=== PATIENT | male | born 1945 | race Caucasian/White ===

== ENCOUNTER 2017-03-23 05:15 | Emergency (ER) | payer MEDICARE ==
[~2017-03-23] VITALS: Ht 170.2 cm; Wt 89.4 kg
[2017-03-23] MEDS ORDERED: oxyCODONE/APAP 5/325 1 TAB TABLET PO ONE (06:30)
[2017-03-23] MEDS ORDERED: NAPROXEN 500 MG TABLET PO ONE (06:30)
--- NOTE | 2017-03-23 06:39 | ED.ADGEN ---
Past Medical History Past Medical History: Diabetes-Type II, [place] Past Surgical History: No Surgical History Alcohol Use: None Drug Use: None Adult General Chief Complaint Chief Complaint: MECHANICAL FALL HPI HPI Patient is a 71 year old man, history of type 2 diabetes mellitus, CAD status post CABG, with arthritis, who presents to the emergency department with a complaint of pain and swelling in the right knee after a fall. Patient states that he got out of bed to use the bathroom, around 2:30 AM, states that his knee "gave out", and he fell to the ground landing on his knee. He states that he was able to get the phone, although he was unable to get up, and he called his sister approximately 3:30 to 4:00, after he was able to get back into bed. He denies any loss of consciousness. He states that he did hit himself in the forehead with phone was trying to get off the bedside table, denies any headache any vision changes, any weakness numbness or tingling. Denies any other complaints aside from his chronic left-sided neck pain due to torticollis. Patient has been told that he needs a knee replacement on the right sided to severe arthritis. He states that the knee will occasionally give out. He denies any change in sensation, is complaining of pain and swelling throughout the knee extending up into the thigh. No hip pain, no new or different back pain, no nausea or vomiting, chest pain or shortness of breath, no weakness, numbness or tingling. Patient takes a daily baby aspirin, no other anticoagulants. He states he has been compliant with his medications. Patient states his pain is currently 8 out of 10 described as a throbbing sensation. He is fully knee slightly flexed, unable to extend fully secondary to pain. Review of Systems Review of Systems Constitutional: Denies fever or chills. [] Eyes: Denies change in visual acuity. [] HENT: Denies nasal congestion or sore throat. [] Respiratory: Denies cough or shortness of breath. [] Cardiovascular: Denies chest pain or edema. [] GI: Denies abdominal pain, nausea, vomiting, bloody stools or diarrhea. [] : Denies dysuria. [] Musculoskeletal: Denies back pain, pain and swelling in the right knee. Integument: Denies rash. [] Neurologic: Denies headache, focal weakness or sensory changes. [] Endocrine: Denies polyuria or polydipsia. [] Lymphatic: Denies swollen glands. [] Psychiatric: Denies depression or anxiety. [] Current Medications Current Medications Current Medications Medications (Trade) Dose Ordered Sig/Hernesto Start Time Stop Time Status Last Admin Dose Admin Naproxen (Naprosyn) 500 mg 1X ONCE 03/23/17 06:30 03/23/17 06:31 DC 03/23/17 06:33 500 MG Oxycodone/ Acetaminophen (Percocet 5/325) 1 tab 1X ONCE 03/23/17 06:30 03/23/17 06:31 DC 03/23/17 06:33 1 TAB Allergies Allergies Allergies Coded Allergies Type Severity Reaction Last Updated Verified Penicillins Allergy Intermediate 03/23/17 Yes Physical Exam Physical Exam Constitutional: Well developed, well nourished, no acute distress, non-toxic appearance. [] HENT: Normocephalic, patient with a small abrasion located in the center of his forehead, no hematoma, no bony point tenderness., bilateral external ears normal , oropharynx moist, no oral exudates, nose normal. [] Eyes: PERRLA, EOMI, conjunctiva normal, no discharge. [] Neck: Normal range of motion, no midline tenderness, no step-offs or deformities , patient tender to palpation on the right paraspinal supple, no stridor. [] Cardiovascular:Heart rate regular rhythm, no murmur, S1, S2, no rubs or gallops. [] Lungs & Thorax: Bilateral breath sounds clear to auscultation, no wheezing, rhonchi, rales. Well-healed midline surgical incision status post CABG. No chest wall crepitus or tenderness. No signs of trauma. Abdomen: Bowel sounds normal, soft, no tenderness, no masses, no pulsatile masses. [] Skin: Warm, dry, no erythema, no rash. [] Back: No midline tenderness, no step-offs or deformities, patient with mild tenderness palpation in the right-sided paraspinal muscles which she states is chronic, no CVA tenderness. [] Extremities: Patient with significant soft tissue swelling palpable hemarthrosis located anterior to the patella, patella is ballotable, no bony point tenderness, patient with soreness throughout the entire knee joint, with tenderness that extends up into the mid thigh region, pelvis is stable to rock and nontender, no pain or tenderness in the lower portion of the right extremity , ankle is intact with full range of motion and foot and ankle, pulses are intact and equal bilaterally, patient with full range of motion of the left lower extremity without issue, and of bilateral upper extremities. Neurologic: Alert and oriented X 3, normal motor function, normal sensory function, no focal deficits noted. [] Psychologic: Affect normal, judgement normal, mood normal. [] Current Patient Data Vital Signs Vital Signs Date Time Temp Pulse Resp B/P (MAP) Pulse Ox O2 Delivery O2 Flow Rate FiO2 03/23/17 08:22 80 18 140/68 (92) 95 Room Air 03/23/17 05:25 98.6 98.6 Lab Values Laboratory Tests Test 03/23/17 06:30 Glucose (Fingerstick) 247 mg/dL (70-99) H EKG EKG Not indicated. [] Radiology/Procedures Radiology/Procedures [][facility] [address] [place] [address] IMAGING REPORT Signed PATIENT: DANIEL CLEMENTS ACCOUNT: [id number] : 1945 LOCATION: ER AGE: 71 SEX: M EXAM [id number] STATUS: REG ER ORD. PHYSICIAN: TERRANCE DELCID DO; Ari BECKER MD REASON: knee pain after fall PROCEDURE: KNEE RIGHT 4V; RIGHT FEMUR XRAY Portable right knee with patella, 4 views, 03/23/2017: History: Fall, pain There is joint space narrowing, spurring and irregularity of the articular surfaces at the knee joint. There is extensive patellofemoral spurring. No fracture or dislocation is identified. There is a moderate-sized knee joint effusion. Chondrocalcinosis is present. IMPRESSION: 1. Severe degenerative change at the right knee with chondrocalcinosis. 2. Moderate sized knee joint effusion. 3. No acute bony abnormality is detected. Right femur, 2 views, 03/23/2017: No fracture is identified. The hip joint space is well-preserved. IMPRESSION: No acute right femoral abnormality is detected. DICTATED and SIGNED BY: YUDY SANTOS MD DATE: 03/23/17705 CC: TERRANCE DELCID DO; ROVERTO JIMENEZ MD; Ari BECKER MD ~ Course & Med Decision Making Course & Med Decision Making Pertinent Labs and Imaging studies reviewed. (See chart for details) X-rays do not reveal any evidence of acute fracture, noted have a effusion as stated. Patient received naproxen and Percocet in the emergency department. On reevaluation he states he is feeling better, and would like to get up and move around. As was placed in the emergency department, and a walker was obtained. Patient ambulating slowly but steadily with walker and immobilizer. I discussed with patient and family at bedside that my main concern is to ensure the patient is comfortable and safe for discharge home. Patient states that he feels comfortable and he will be staying with his sister, as her home is 1 level and he will not have to go up any stairs, we discussed that he will need to be safe and steady in order to get to the bathroom, kitchen, bedroom patient states that this will be comfortable for him, and he is ready to be discharged home with his family. Patient's sister does have a rolling walker at home which the patient will be able to use. Family voiced agreement with plan. We did discuss concerning symptoms that would prompt return, importance of scheduling follow- up with Dr. Alvarez of orthopedics, to call today to schedule appointment for prompt follow-up, to return to the ED if concerning symptoms develop. Patient given prescription for naproxen and Percocet, along with medication precautions and instructions. Patient voiced understanding and agreement with plan and precautions as stated, discharged home in stable condition with his family. Dragon Disclaimer Dragon Disclaimer This electronic medical record was generated, in whole or in part, using a voice recognition dictation system. Departure Impression: Primary Impression: Knee contusion Disposition: HOME, SELF-CARE Condition: IMPROVED Scripts Docusate Sodium (COLACE) 100 Mg Capsule 1 CAP PO BID, #30 CAP Take one tablet by mouth twice daily while using Percocet to prevent constipation. Stay well-hydrated. Prov: TERRANCE DELCID DO 03/23/17 Oxycodone/Apap 5-325 (PERCOCET 5-325 MG TABLET) 1 Each Tablet 1 TAB PO PRN Q6HRS Y for PAIN, #12 TAB Prov: TERRANCE DELCID DO 03/23/17 Naproxen (NAPROXEN) 250 Mg Tablet 250 MG PO PRN BID Y for PAIN, #10 One tablet by mouth up to twice daily as needed for pain. Take with food, stop use if stomach upset develops. Prov: TERRANCE DELCID DO 03/23/17 TERRANCE DELCID DO Mar 23, 2017 06:39
--- NOTE | 2017-03-23 07:12 | RAD ---
Portable right knee with patella, 4 views, 03/23/2017: History: Fall, pain There is joint space narrowing, spurring and irregularity of the articular surfaces at the knee joint. There is extensive patellofemoral spurring. No fracture or dislocation is identified. There is a moderate-sized knee joint effusion. Chondrocalcinosis is present. IMPRESSION: 1. Severe degenerative change at the right knee with chondrocalcinosis. 2. Moderate sized knee joint effusion. 3. No acute bony abnormality is detected. Right femur, 2 views, 03/23/2017: No fracture is identified. The hip joint space is well-preserved. IMPRESSION: No acute right femoral abnormality is detected.
[2017-03-23 08:22] VITALS: BP 140/68
[2017-03-23] MEDS ORDERED: DOCU-109 PO (08:46)
[2017-03-23] MEDS ORDERED: OXYC-323 PO (08:46)
[2017-03-23] MEDS ORDERED: NAPR250T2 PO (08:46)
== END 2017-03-23 09:07 | disposition home or self-care (01) ==
LOC: ER 05:15
DX: S80.01XA Contusion of right knee, initial encounter (principal); E11.9 Type 2 diabetes mellitus without complications; I25.2 Old myocardial infarction; I25.10 Atherosclerotic heart disease of native coronary artery without angina pectoris; M19.90 Unspecified osteoarthritis, unspecified site; M43.6 Torticollis; Z79.82 Long term (current) use of aspirin; Z88.0 Allergy status to penicillin; Z95.1 Presence of aortocoronary bypass graft; W01.198A Fall on same level from slipping, tripping and stumbling with subsequent striking against other object, initial encounter; Y93.89 Activity, other specified; Y92.89 Other specified places as the place of occurrence of the external cause; Y99.8 Other external cause status
CPT/HCPCS: 29505; 73552; 73564; 82962; 99284-25